=== PATIENT | female | born 1990 | race Caucasian/White ===

== ENCOUNTER 2023-09-02 01:06 | Outpatient (CLI) | payer OTHER | END 2023-09-02 01:07 | disposition critical access hospital (66) | LOC: EMS 01:06 | DX: F41.0 Panic disorder [episodic paroxysmal anxiety] (principal); U07.1 COVID-19 | CPT/HCPCS: A0425; A0429 ==

== ENCOUNTER 2023-09-02 01:41 | Emergency (ER) | payer BC, OTHER ==
[2023-09-02 02:09] VITALS: BP 106/74; O2SAT 100
--- NOTE | 2023-09-02 02:11 | ED Physician Documentation ---
History of Present Illness - Stated complaint Stated Complaint: PANIC ATTACK - Chief complaint Chief Complaint: MHE - Additonal information Additional information: Patient 33-year-old female with past medical significant for generalized anxiety presenting via EMS with panic attack. Has been diagnosed with COVID 4 days ago. Cough, congestion, sore throat. No shortness of breath or chest pain. Began having increasing anxiety today. Took a clonazepam after EMS arrived. Now states she feels better. Denies suicidal or homicidal ideation. Denies auditory or visual hallucination. Review of Systems Constitutional: denies: Fever Eyes: denies: Loss of vision Ears: denies: Loss of hearing Nose: reports: Congestion Throat: reports: Sore throat Respiratory: reports: Cough : denies: Dysuria Skin: denies: Rash PD ED PE NORMAL - Vitals Vital signs reviewed: Yes (WNL) - General General: Alert and oriented X 3, No acute distress - HEENT HEENT: Atraumatic, PERRL, EOMI, Ears normal, Moist mucous membranes, Pharynx benign - Neck Neck: Supple, no meningeal sign, No bony TTP, No adenopathy, Thyroid normal, No JVD, No bruit, C-Spine cleared by NEXUS criteria - Cardiac Cardiac: RRR, No murmur, No gallop, Strong equal pulses - Respiratory Respiratory: No respiratory distress, Clear bilaterally - Abdomen Abdomen: Normal bowel sounds, Soft, Non tender - Female Female : Deferred - Rectal Rectal: Deferred - Back Back: No CVA TTP - Derm Derm: Normal color - Extremities Extremities: No deformity - Neuro Neuro: Alert and oriented X 3, coordinator skill training program 2-12 intact, No motor deficit, No sensory deficit, Normal speech Results - Vitals Vitals: Vital Signs - 24 hr 09/02/23 01:57 Temperature 36.3 C L Heart Rate 67 Respiratory 20 Rate Blood Pressure 106/74 O2 Saturation 100 Oxygen O2 Source Room air PD Medical Decision Making - ED course Complexity details: considered differential ED course: Patient 33-year-old female presenting to the emergency department with chief complaint of panic attack. Afebrile, he medically stable and arrival to the emergency department. Patient recently diagnosed with the SARS COVID-19 virus. No tachycardia, tachypnea or chest pain that would be suggestive of pulmonary emboli. She did endorse for sore throat and had some erythema in her posterior oropharynx without exudates, tonsillar enlargement, uvular deviation, sublingual elevation or indications of deep space neck infection. The remainder of her physical exam is benign. She took a clonazepam prior to arrival in the emergency department. Was offered telemetry behavioral health/[facility] evaluation which she declined. Denied suicidal or homicidal ideations and did not demonstrate grave disability or Imminent harm to self or others. Will discharge for follow-up with primary care and her counselor. Clear return precautions given. Departure - Departure Disposition: 01 Home, Self Care Clinical Impression: Anxiety, SARS-CoV-2 positive Instructions: ED Panic Attack Comments: Please follow-up with your primary care doctor and counselor soon as possible. If it anytime you have new or worsening symptoms please not hesitate to return.
== END 2023-09-02 02:43 | disposition home or self-care (01) ==
LOC: ED 01:41
DX: F41.9 Anxiety disorder, unspecified (principal); U07.1 COVID-19
CPT/HCPCS: 99283

== ENCOUNTER 2024-04-14 08:00 | Outpatient (CLI) | payer OTHER | END 2024-04-14 23:59 | disposition home or self-care (01) | LOC: LAB.N 08:00 | PROVIDERS: ATTEND Emergency Medicine | DX: J35.8 Other chronic diseases of tonsils and adenoids (principal); J02.9 Acute pharyngitis, unspecified | CPT/HCPCS: 87070 ==